=== PATIENT | female | born 1965 | race Caucasian/White ===

== ENCOUNTER → 2017-03-17 | Outpatient (CLI) | payer BC ==
--- NOTE | 2017-03-20 11:11 | MM ---
Reason for exam: screening (asymptomatic). Last mammogram was performed 1 year and 2 months ago. History: Family history of breast cancer in grandmother at age 70. Physical Findings: A clinical breast exam by your physician is recommended on an annual basis and results should be correlated with mammographic findings. MG Screening Mammo w CAD Bilateral CC and MLO view(s) were taken. Prior study comparison: January 20, 2016, bilateral MG screening mammo w CAD. October 06, 2012, bilateral digital screening mammo w/CAD. May 26, 2010, bilateral digital screening mammogram. There are scattered fibroglandular densities. Developing asymmetry in the left breast middle depth medial position. Focal asymmetry. Questionable obscured density in the right breast middle depth outer aspect. Asymmetric breast tissue. ASSESSMENT: Incomplete: need additional imaging evaluation, BI-RAD 0 RECOMMENDATION: Special view mammogram of both breasts. If lesion persists on supplemental views, image directed ultrasound is recommended. [facility] will attempt to contact patient to return for supplemental views and ultrasound if indicated.
== END ==
LOC: RADMAMWWP 12:25
PROVIDERS: ATTEND Family Medicine
DX: Z12.31 Encounter for screening mammogram for malignant neoplasm of breast (principal)

== ENCOUNTER → 2017-05-23 | Outpatient (CLI) | payer BC ==
[2017-05-23 15:49] LABS: Basophils # (A) 0.1 k/uL (0-0.2); Basophils % (A) 1 %; CH 33.3; Eosinophils % (A) 1 %; HCT 48.1 % (34.0-46.0); HGB 15.5 gm/dL (11.4-16.0); Luc # (Auto) 0.07; Luc % (Auto) 1; Lymphocytes # (A) 1.5 k/uL (1.0-4.8); Lymphocytes % (A) 22 %; MCH 31.6 pg (25.0-35.0); MCHC 32.2 g/dL (31.0-37.0); MCV 98.3 fL (80.0-100.0); Mean Platelet Volume 8.3; Monocytes # (A) 0.4 k/uL (0-1.0); Monocytes % (A) 5 %; Neutrophils % (A) 71 %; RDW 13.4 % (11.5-15.5); WBC (Perox) 6.68
== END | disposition home or self-care (01) ==
LOC: LABPAT 15:23
PROVIDERS: ATTEND Anesthesiology
DX: Z01.810 Encounter for preprocedural cardiovascular examination (principal); I10 Essential (primary) hypertension
CPT/HCPCS: 85025; 93005

== ENCOUNTER 2017-06-02 09:20 | Inpatient (IN) | payer BC ==
[2017-05-24 08:08] VITALS: BMI 26.6
[~2017-06-02 09:20] MED LIST: CLINDAMYCIN 900 MG in DEXTROSE 5% IN WATER 50 ML IVPB ONE; DEXAMETHASONE SOD PHOSPHATE 10 MG/ML 1 ML VIAL IV ONE; HEPARIN SODIUM,PORCINE 5,000 UNIT/ML 1 ML VIAL SQ ONE; HYDROmorphone 1 MG/ML 1 ML SYRINGE IVP PRN; MIDAZOLAM 2 MG/2 ML VIAL IV PRN; ONDANSETRON 4 MG/2 ML VIAL IVP ONE; SCOPOLAMINE 1.5MG/72HR PATCH TRANSDERM ONE
--- NOTE | 2017-06-02 09:47 | P.GSHP ---
History of Present Illness 51 yrs old female presents for follow up regarding Bauer's esophagitis and reflux. Unsuccessful attempt at 24 hr pH and manmetry study. Small hiatal hernia and distal esophagitis showing Bauer's changes in 2016. Patient continues to have reflux and takes daily PPI. She also has IBS and take Bentyl. No weight loss. No dysphagia. Last colonoscopy by Dr. Flako Vasquez on 04/16 ROS Additionally reports: Constitutional: No fever, chills or rigors. No weight loss or loss of appetite. HEENT: No difficulty with hearing, vision and swallowing. Lymphatic: No axillary, inguinal and cervical swellings. Endocrine: No thyroid disorders. Denies history of diabetes. Respiratory: No chest pain, shortness of breath, and cough. No hemoptysis. Cardiovascular: No palpitations, irregular HR Gastrointestinal: Has heartburn. Genitourinary: No increase in urinary frequency or urgency. No hematuria. Musculoskeletal: No back pain, joint stiffness or pain. Neurologic: No history of seizure disorder and headaches. Psychiatric: Denies depression or anxiety . No suicidal ideation. Hematologic: Denies any abnormal mucosal bleeding or easy bruising. Physical Exam Patient is a 51-year-old female. Constitutional: General Appearance: healthy-appearing, well-nourished, and well- developed. Level of Distress: NAD. Ambulation: ambulating normally. Psychiatric: Insight: good judgement. Orientation: to time, place, and person. Head: Head: normocephalic and atraumatic. Eyes: Lids and Conjunctivae: no discharge or pallor and non-injected. Sclerae: non-icteric. ENMT: Oropharynx: moist mucous membranes. Abdomen: Bowel Sounds: normal. Inspection and Palpation: no tenderness or guarding and soft and non-distended. Musculoskeletal:: Motor Strength and Tone: normal and normal tone. Joints, Bones , and Muscles: normal movement of all extremities. Extremities: no cyanosis or edema. Neurologic: Gait and Station: normal gait and station. Cranial Nerves: grossly intact. Assessment / Plan 1. Reji's esophagitis and refractory GERD 2. Chronic active smoker. Smoking cessation 3. Unable to tolerate pH and manometry test 4. Informed consent obtained from the patient after explaining the risks, benefits and potential complications including bleeding, infection, pneumothorax , dysphagia, vagus nerve injury and she elected to undergo robotic assist laparoscopic hiatal hernia repair with possible mesh and Willy fundoplication with intraoperative EGD. 5. Postoperative course explained including diet restriction and postop diet plan. No heavy lifting more than 10 pounds for 6 weeks post surgery 1. 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 Nicotine dependence F17.200: Nicotine dependence, unspecified, uncomplicated STOPPING SMOKING: CARE INSTRUCTIONS 3. Irritable bowel syndrome K58.9: Irritable bowel syndrome without diarrhea IRRITABLE BOWEL SYNDROME: CARE INSTRUCTIONS Past Medical History Past Medical History: Asthma, GERD/Reflux, Hypertension Additional Past Medical History / Comment(s): SEASONAL ALLERGIES, PAST HX OF ANEMIA, IBS. History of Any Multi-Drug Resistant Organisms: None Reported Past Surgical History: Tubal Ligation Additional Past Surgical History / Comment(s): BUNIONECTOMY, ECTOPIC Past Anesthesia/Blood Transfusion Reactions: No Reported Reaction Smoking Status: Current every day smoker - Past Family History Father Family Medical History: Cancer Additional Family Medical History / Comment(s): THROAT CANCER Medications and Allergies Home Medications Medication Instructions Recorded Confirmed Type ALPRAZolam [Xanax] 0.25 mg PO BID PRN 04/22/16 05/24/17 History Albuterol Inhaler [Ventolin Hfa 1 - 2 puff INHALATION Q6HR PRN 04/22/16 History Inhaler] Dicyclomine [Bentyl] 20 mg PO BID PRN 04/22/16 05/24/17 History Fluticasone Nasal [place] [Flonase 1 spray EA NOSTRIL BID PRN 04/22/16 05/24/17 History Nasal [place]] Omeprazole 40 mg PO DAILY 04/22/16 05/24/17 History Lisinopril-Hctz 20-25 mg 1 tab PO DAILY 05/24/17 05/24/17 History [Zestoretic 20-25] Montelukast [Singulair] 10 mg PO HS 05/24/17 05/24/17 History Sulfamethox-Tmp 800-160Mg [Bactrim 1 tab PO Q12HR 06/02/17 06/02/17 History DS 800-160 mg] Allergies Allergy/AdvReac Type Severity Reaction Status Date / Time Beef Containing Products Allergy Unknown IBS Verified 06/02/17 09:41 [Beef] SYMPTOMS corn Allergy Unknown IBS Verified 06/02/17 09:41 SYMPTOMS latex Allergy Unknown Rash/Hives Verified 06/02/17 09:41 wheat Allergy Unknown IBS Verified 06/02/17 09:41 SYMPTOMS cephalexin monohydrate Allergy Itching Verified 06/02/17 09:41 [From Keflex] tetracycline AdvReac Unknown Verified 06/02/17 09:41 Surgical - Exam Vital Signs Temp Pulse Resp BP Pulse Ox 98.1 F 74 16 108/85 96 06/02/17 09:40 06/02/17 09:40 06/02/17 09:40 06/02/17 09:40 06/02/17 09:40
[2017-06-02] MEDS: LACTATED RINGERS 1,000 ML IV SCH (09:55)
[2017-06-02] MEDS ORDERED: LIDOCAINE 1% 20 ML VIAL (10MG/ML) FOR IV START INTRADERMA ONE (09:56)
[2017-06-02] MEDS ORDERED: GLYCOPYRROLATE 0.2 MG/ML 2 ML VIAL ONE (10:15)
[2017-06-02] MEDS ORDERED: MIDAZOLAM 2 MG/2 ML VIAL ONE (10:15)
[2017-06-02] MEDS ORDERED: NEOSTIGMINE 1 MG/ML 10 ML VIAL ONE (10:15)
[2017-06-02] MEDS ORDERED: ePHEDrine SULFATE/0.9% NACL/PF 50 MG/5 ML SYRINGE IV ONE (10:15)
[2017-06-02] MEDS ORDERED: ROCURONIUM BROMIDE 10 MG/ML 10 ML VIAL IV ONE (10:15)
[2017-06-02] MEDS ORDERED: PROPOFOL 10 MG/ML 20 ML VIAL IV ONE (10:15)
[2017-06-02] MEDS ORDERED: LIDOCAINE 1% INJ 10MG/ML (20 ML MDV) ONE (10:15)
[2017-06-02] MEDS ORDERED: SUCCINYLCHOLINE CHLORIDE 100 MG/5 ML SYR IV ONE (10:15)
[2017-06-02] MEDS ORDERED: fentaNYL (PF) 50 MCG/ML 2 ML AMP ONE (10:15)
[2017-06-02] MEDS ORDERED: HYDROmorphone (PF) 1 MG/ML ONE (10:15)
[2017-06-02] MEDS ORDERED: LIDOCAINE 2%-EPI 1:100,000 20 ML VIAL SQ ONE (10:48)
[2017-06-02] MEDS ORDERED: LACTATED RINGERS 1,000 ML IV ONE (11:35)
[2017-06-02 11:44] LABS: Potassium 4.5 mmol/L (3.5-5.1)
[2017-06-02] MEDS ORDERED: HYDROcodone/APAP 15 ML SOLUTION PO PRN (12:31)
[2017-06-02] MEDS ORDERED: NALOXONE 0.4 MG/ML 1 ML VIAL IV PRN (12:31)
[2017-06-02] MEDS ORDERED: diphenhydrAMINE 50 MG/ML 1 ML VIAL IVP PRN (12:31)
--- NOTE | 2017-06-02 12:31 | P.OP ---
Date of Procedure: 06/02/17 Preoperative Diagnosis: GERD Bauer's esophagus Nicotine dependence Postoperative Diagnosis: Same Procedure(s) Performed: Robotic assist lap hiatal hernia repair and Willy fundoplication Intraop EGD Anesthesia: CECY local Surgeon: Ernestina Dickerson Pathology: none sent Condition: stable Disposition: PACU Indications for Procedure: 51 yr old female presents with refractory GERD and EGD showed Reji's esophagitis. Informed consent obtained. Description of Procedure: The patient was brought to the operating room and placed in supine position. General anesthesia with endotracheal intubation was performed as per anesthesia team. A Davsi catheter was inserted under sterile aseptic precautions. 2 secure straps were placed. The abdomen was prepped and draped using ChloraPrep and sterile dressings were applied followed by an Ioban dressing. A 5 mm skin incision was made in left anterior axillary line and a Veress needle was inserted. Proper position was confirmed by aspiration and saline meniscus test. Pneumoperitoneum was insufflated to a pressure of 15 mm of Hg. Using 5 mm 30 laparoscope, the peritoneal cavity was entered under direct vision using the Optiview technique. Two 8 mm robotic trocars were placed in the left upper quadrant, a 12 mm camera port above the umbilicus, another 12 mm port in the right upper quadrant and a 5 mm robotic trocar in the right upper quadrant. The da Pat robot was then brought in. The patient was placed in reverse Trendelenburg position. A nellie flex liver retractor was introduced in the right epigastric port to elevate the left lobe of the liver and expose the hiatus. Moderate size hernia was noted with 15% of the stomach in the thoracic cavity. The lesser omentum was opened with vessel sealer. The incision was extended over the hiatus to the left of the fer. The right fer was identified and cleared of its investing tissue, and the dissection was then carried over the arch of the crura. The left fer was similarly dissected and the phrenoesophageal ligament divided. The vagus nerves were identified and protected. The esophagus was gently elevated with a closed grasper and the dissection progressed underneath the esophagus until it was fully mobilized. The hernia sac extended up to the chest and was fully mobilized and resected. The gastroepiploic vessels were ligated along the greater curvature of stomach. Care was taken not to injure spleen while dividing the short gastric vessels with vessel sealer. The stomach was completely mobilized and adequate length was obtained in the esophagus allowing at least 3 cm of intra abdominal esophagus. The hernia defect measures 5 x 3 cm. 3 interrupted sutures of 2-0 Ethibond were placed to close the hiatal defect posteriorly and anteriorl without causing undue narrowing of the esophagus. An angled grasper was passed behind the esophagus and the fundus grasped and pulled behind the esophagus. It passed easily and was easily approximated without tension to the remaining fundus, creating a 360 floppy wrap around the distal esophagus. The wrap was sutured to itself with 3 interrupted sutures of 2-0 Ethibond. The top most suture included a partial thickness bite of the esophagus to anchor the wrap. Intraoperative EGD was then performed. The scope was easily passed beyond the wrap without any undue tension or narrowing. The scope was retroflexed and the Willy wrap visualized. There was no air leak upon insufflation of the stomach. Excess air was suctioned and scope was removed. The liver retractor was removed. The 12 mm trocar sites were closed with two transfascial sutures of 0 Vicryl. Pneumoperitoneum was evacuated and all trocar sites were examined. No evidence of bleeding. The skin incision were closed with 4-0 Monocryl followed by Dermabond skin glue. Sponge, instrument and needle count were correct x 2. Patient tolerated the procedure well and was taken to post anesthesia care unit in stable condition
--- NOTE | 2017-06-02 12:34 | P.DS ---
Providers Date of admission: 06/02/17 09:20 Expected date of discharge: 06/03/17 Attending physician: Ernestina Dickerson Primary care physician: [facility] Course: 51 yr old female S/P robotic hiatal hernia repair with Willy fundoplication. Patient did well post op . Tolerating liquids. Pain well controlled. Patient Condition at Discharge: Fair Plan - Discharge Summary New Discharge Prescriptions: New Hydrocodone/Acetaminophen [Hycet 7.5 mg-325 mg/15 ml Soln] 15 ml PO Q6HR PRN #300 ml PRN Reason: Pain No Action Fluticasone Nasal [place] [Flonase Nasal [place]] 1 spray EA NOSTRIL BID PRN PRN Reason: allergies Dicyclomine [Bentyl] 20 mg PO BID PRN PRN Reason: IBS Albuterol Inhaler [Ventolin Hfa Inhaler] 1 - 2 puff INHALATION RT-Q6H PRN PRN Reason: Shortness Of Breath ALPRAZolam [Xanax] 0.25 mg PO BID PRN PRN Reason: Anxiety Lisinopril-Hctz 20-25 mg [Zestoretic 20-25] 1 tab PO DAILY Montelukast [Singulair] 10 mg PO HS Sulfamethox-Tmp 800-160Mg [Bactrim DS 800-160 mg] 1 tab PO Q12HR Omeprazole 40 mg PO DAILY Discharge Medication List ALPRAZolam [Xanax] 0.25 mg PO BID PRN 04/22/16 [History] Albuterol Inhaler [Ventolin Hfa Inhaler] 1 - 2 puff INHALATION RT-Q6H PRN [History] Dicyclomine [Bentyl] 20 mg PO BID PRN 04/22/16 [History] Fluticasone Nasal [place] [Flonase Nasal [place]] 1 spray EA NOSTRIL BID PRN [History] Lisinopril-Hctz 20-25 mg [Zestoretic 20-25] 1 tab PO DAILY 05/24/17 [History] Montelukast [Singulair] 10 mg PO HS 05/24/17 [History] Hydrocodone/Acetaminophen [Hycet 7.5 mg-325 mg/15 ml Soln] 15 ml PO Q6HR PRN # 300 ml 06/02/17 [Rx] Omeprazole 40 mg PO DAILY 06/02/17 [History] Sulfamethox-Tmp 800-160Mg [Bactrim DS 800-160 mg] 1 tab PO Q12HR 06/02/17 [ History] Follow up Appointment(s)/Referral(s): Ernestina Dickerson MD [STAFF PHYSICIAN] - 06/13/17 (Please call office for time of appointment) Patient Instructions/Handouts: Adult Laparoscopic Willy Fundoplication (DC), Laparoscopic Hiatal Hernia Repair (DC) Activity/Diet/Wound Care/Special Instructions: OK to shower . No soaking bath. No heavy lifting more than 10 lbs for 6 weeks post surgery. No driving while taking narcotics for pain. May use ice packs for local pain relief Take Motrin 400 mg po TID after meals if pain is not controlled Use incentive spirometry 10 times an hour while awake Discharge Disposition: HOME SELF-CARE
[2017-06-02] MEDS ORDERED: ACETAMINOPHEN IV (For NPO) 1,000 MG in EMPTY BAG 1 BAG IVPB ONE (14:00)
[2017-06-02] MEDS: ALBUTEROL NEBULIZED 2.5 MG/3 ML INHALATION SCH ×2 (15:40→19:52)
[2017-06-02] MEDS: HEPARIN SODIUM,PORCINE 5,000 UNIT/ML 1 ML VIAL SQ SCH ×2 (16:35→23:35)
[2017-06-02] MEDS ORDERED: ALPRAZolam 0.25 MG TAB PO PRN (17:46)
[2017-06-02] MEDS: SIMETHICONE 40 MG/0.6 ML DROPS 2,000 MG/30 ML BOTTLE PO PRN (18:28)
[2017-06-02] MEDS: FLUTICASONE 50MCG/SPRAY NASAL 16GM EA NOSTRIL PRN (18:28)
[2017-06-02] MEDS: HYOSCYAMINE ORAL DROPS 1.875 MG/15 ML BOTTLE PO PRN (18:28)
[2017-06-02] MEDS ORDERED: MONTELUKAST 10 MG TAB PO SCH (21:00)
[2017-06-02] MEDS: HYDROmorphone 1 MG/ML 1 ML SYRINGE IVP PRN (22:15)
[2017-06-03] MEDS: HYDROmorphone 1 MG/ML 1 ML SYRINGE IVP PRN ×2 (03:10→07:12)
[2017-06-03] MEDS: LACTATED RINGERS 1,000 ML IV SCH (05:05)
[2017-06-03 05:58] VITALS: RESP 16
[2017-06-03 07:02] LABS: Basophils % (A) 0 %; CH 31.5; CHCM 32.8; Eosinophils % (A) 1 %; HCT 38.2 % (34.0-46.0); HDW 2.04; HGB 12.7 gm/dL (11.4-16.0); Luc # (Auto) 0.11; Luc % (Auto) 2; Lymphocytes # (A) 1.4 k/uL (1.0-4.8); Lymphocytes % (A) 23 %; MCHC 33.1 g/dL (31.0-37.0); MCV 96.5 fL (80.0-100.0); Mean Platelet Volume 7.7; Monocytes # (A) 0.4 k/uL (0-1.0); Monocytes % (A) 6 %; Neutrophils # (A) 4.1 k/uL (1.3-7.7); Neutrophils % (A) 68 %; RBC 3.96 m/uL (3.80-5.40); RDW 12.8 % (11.5-15.5); WBC 6.1 k/uL (3.8-10.6); WBC (Perox) 6.33
[2017-06-03 07:04] VITALS: BP 115/74; PULSE 59; TEMP 97.2
[2017-06-03] MEDS: ONDANSETRON 4 MG/2 ML VIAL IVP PRN ×2 (07:12→14:22)
[2017-06-03] MEDS: HYOSCYAMINE ORAL DROPS 1.875 MG/15 ML BOTTLE PO PRN (07:16)
[2017-06-03] MEDS: SIMETHICONE 40 MG/0.6 ML DROPS 2,000 MG/30 ML BOTTLE PO PRN (07:17)
[2017-06-03 07:19] LABS: Anion Gap 5 mmol/L; Blood Urea Nitrogen 7 mg/dL (7-17); Calcium 9.4 mg/dL (8.4-10.2); Carbon Dioxide 26 mmol/L (22-30); Chloride 109 mmol/L (98-107); Magnesium 1.8 mg/dL (1.6-2.3); Non-African American GFR(MDRD) >60 (>60 ml/min/1.73 sqM); Phosphorus 4.2 mg/dL (2.5-4.5); Potassium 4.7 mmol/L (3.5-5.1); Sodium 140 mmol/L (137-145)
[2017-06-03] MEDS ORDERED: 0.9% NACL WITH KCL 20 MEQ/L 1,000 ML IV SCH (08:00)
[2017-06-03] MEDS ORDERED: PANTOPRAZOLE 40 MG/10 ML VIAL IV SCH (09:00)
[2017-06-03] MEDS ORDERED: LISINOPRIL-HCTZ 20-25 MG 1 EACH TAB PO SCH (09:00)
[2017-06-03] MEDS: ALBUTEROL NEBULIZED 2.5 MG/3 ML INHALATION SCH ×2 (09:16→12:53)
--- NOTE | 2017-06-03 09:41 | FL ---
EXAMINATION TYPE: FL UGI DATE OF EXAM: 06/03/2017 LIMITED UGI-ESOPHAGRAM: CLINICAL HISTORY: Chronic reflux and pain with sliding hiatal hernia, Mario fundoplication surgery p erformed yesterday. TECHNIQUE: Limited UGI is performed utilizing 50 oz of Omnipaque 350. A total of 15 seconds of fluor oscopic time was utilized during procedure. 13 spot images were saved. FINDINGS: The patient swallowed contrast without difficulty or delay. Esophageal peristalsis and mo tility are within normal limits. There is good flow of contrast along the diaphragmatic hiatus into t he stomach, there is no evidence of contrast extravasation to suggest leak. No persistent hiatal tony ia is seen. Patient remains asymptomatic. IMPRESSION: No evidence of leak or significant obstruction status post Mario fundoplication surgery yesterday.
[2017-06-03] MEDS: FLUTICASONE 50MCG/SPRAY NASAL 16GM EA NOSTRIL PRN (11:07)
[2017-06-03] MEDS: HEPARIN SODIUM,PORCINE 5,000 UNIT/ML 1 ML VIAL SQ SCH (11:07)
--- NOTE | 2017-06-03 22:00 | P.PN ---
Subjective Principal diagnosis: Hiatal hernia Patient presented with history of hiatal hernia. She is status post hiatal hernia repair with Willy fundoplasty by Dr. Dickerson. No reports of moderate abdominal pain. Objective - Vital Signs Vital signs: Vital Signs Temp 97.2 F L 06/03/17 07:00 Pulse 59 L 06/03/17 07:00 Resp 16 06/03/17 07:00 BP 115/74 06/03/17 07:00 Pulse Ox 99 06/03/17 10:21 Intake & Output 06/02/17 06/03/17 06/03/17 18:59 06:59 18:59 Intake Total 2206 1900 Output Total 210 1100 Balance 1995 800 Weight 70.307 kg Intake: IV 2206 800 0.9% NaCl with KCl 20 Meq 800 /l 1,000 ml @ 100 mls/hr IV .Q10H SAILAJA Rx#: [id number] Oral 1100 Output: Urine 200 1100 Estimated Blood Loss 10 Other: Voiding Method Toilet # Voids 2 2 - Exam GENERAL: Well developed and in no acute distress. Pleasant. HEENT: No sclera icterus. Extraocular movements grossly intact. Moist buccal mucosa. Head is atraumatic, normocephalic. Hears conversational speech. No nasal drainage. CHEST: Non-labored respirations and equal bilateral excursions. CARDIOVASCULAR: Regular rate and rhythm. Palpable 2+ radial pulses. ABDOMEN: Soft. Nondistended. NEUROLOGIC: No focal or lateralizing signs. PSYCH: Appropriate affect. Alert and oriented to person, place and time. - Labs CBC & Chem 7: 06/03/17 06:40 06/03/17 06:40 Labs: Abnormal Lab Results - Last 24 Hours (Table) 06/03/17 Range/Units 06:40 Chloride 109 H (98-107) mmol/L - Imaging and Cardiology Esophagram reviewed. No obstruction. Assessment and Plan (1) Hiatal hernia Status: Acute (2) Gastroesophageal reflux Status: Acute Plan: 1. Recommend diet instructions per attenting. 2. Patient clinically cleared for discharge.
[2017-06-04] MEDS ORDERED: BISACODYL 5 MG TABLET.DR PO PRN (08:00)
== END 2017-06-03 15:11 | disposition home or self-care (01) | DRG 328 ==
LOC: 2ORWHC 09:20 → 3SUR 13:13
PROVIDERS: ADMIT Surgery; ATTEND Surgery
PROC: 0BQS4ZZ (ICD-10-PCS; principal; 2017-06-02 10:30)
PROC: 0BQR4ZZ (ICD-10-PCS; principal; 2017-06-02 10:30)
PROC: 0DJ08ZZ Inspection of Upper Intestinal Tract, Via Natural or Artificial Opening Endoscopic (ICD-10-PCS; principal; 2017-06-02 10:30)
PROC: 0DV44ZZ Restriction of Esophagogastric Junction, Percutaneous Endoscopic Approach (ICD-10-PCS; principal; 2017-06-02 10:30)
PROC: 8E0W4CZ Robotic Assisted Procedure of Trunk Region, Percutaneous Endoscopic Approach (ICD-10-PCS; principal; 2017-06-02 10:30)
DX: K44.9 Diaphragmatic hernia without obstruction or gangrene (principal); I10 Essential (primary) hypertension; F17.200 Nicotine dependence, unspecified, uncomplicated; J45.909 Unspecified asthma, uncomplicated; K21.0 Gastro-esophageal reflux disease with esophagitis; K22.70 Barrett's esophagus without dysplasia; K58.9 Irritable bowel syndrome, unspecified; Z79.899 Other long term (current) drug therapy; Z80.8 Family history of malignant neoplasm of other organs or systems; Z88.1 Allergy status to other antibiotic agents; Z91.040 Latex allergy status; Z91.018 Allergy to other foods; Z71.6 Tobacco abuse counseling; Z71.3 Dietary counseling and surveillance
CPT/HCPCS: 74240; 80051; 81025; 82310; 82565; 83735; 84100; 84520; 85025; 94760; 94762

== ENCOUNTER → 2018-12-13 | Outpatient (CLI) | payer BC ==
--- NOTE | 2018-12-13 14:50 | CT ---
EXAMINATION TYPE: CT chest wo con DATE OF EXAM: 12/13/2018 COMPARISON: HISTORY: Pleural scarring. Bronchitis x [address] DLP: 400.9 mGycm. Automated Exposure Control for Dose Reduction was Utilized. TECHNIQUE: CT scan of the thorax is performed without IV contrast. FINDINGS: LUNGS: There is no concerning parenchymal mass or nodule identified. Apical paraseptal emphysematous changes, centrilobular emphysema is present bilaterally. There is no pleural effusion or pneumothora x seen. The tracheobronchial tree is patent. Some bandlike areas of increased attenuation at the bertha g bases likely reflect atelectasis or scar. Lack of contrast could compromise sensitivity. MEDIASTINUM: Lack of IV contrast is noted to limit evaluation for mediastinal and especially hilar ad enopathy. There are no definitive greater than 1 cm hilar or mediastinal lymph nodes. There are muriel nary artery calcifications. No cardiomegaly or pericardial effusion is seen. OTHER: Diverticular changes noted in the colon. There are calcifications seen at the lower pole the l eft kidney. IMPRESSION: Emphysema and additional findings above.
== END | disposition home or self-care (01) ==
LOC: RADCTMAIN 11:33
PROVIDERS: ATTEND Family Medicine
DX: J43.2 Centrilobular emphysema (principal); I25.10 Atherosclerotic heart disease of native coronary artery without angina pectoris; R59.0 Localized enlarged lymph nodes; R91.8 Other nonspecific abnormal finding of lung field
CPT/HCPCS: 71250

== ENCOUNTER → 2021-10-08 | Outpatient (CLI) | payer BC ==
--- NOTE | 2021-10-10 10:33 | PE ---
EXAMINATION TYPE: PET CT fusion whole body DATE OF EXAM: 10/08/2021 COMPARISON: NONE HISTORY: Abdominal mass per order. Outside CT showed left upper retroperitoneal partially calcified mass. Mass on back per patient. TECHNIQUE: Following the intravenous administration of 9.51 mCi of F-18 FDG, whole body images are p erformed from the skull base to the bottom of feet. Images are reviewed on the computer in the coron al, axial, and sagittal planes. Reconstructed rotating images are created on independent workstation and reviewed on the computer. A localization and attenuation correction CT is performed in conjunc tion with the PET scan. Glucose level equals 98. SCAN: Chest CT December 13, 2018 FINDINGS: SKULL BASE AND NECK: No areas of abnormal hypermetabolic uptake CHEST, MEDIASTINUM, AND HILAR REGION: No areas of abnormal hypermetabolic uptake. ABDOMEN AND PELVIS: Corresponding to patient's history in the posterior left mid abdomen there is het erogeneous soft tissue and calcification in the retroperitoneum beginning at axial image 148 extendin g inferiorly through image 164 without abnormal hypermetabolic uptake. No abnormal hypermetabolic upt jenifer in the abdomen or pelvis. Normal excretion is seen. OSSEOUS STRUCTURES: No abnormal hypermetabolic uptake LOWER EXTREMITIES: No abnormal hypermetabolic uptake. OTHER CT: Mild calcified plaque bilateral carotid bulb level. Mild underlying emphysematous changes r edemonstrated. Coronary artery calcification proximal LAD noted. Irregular mass of calcified and soft tissue density in the posterior left retroperitoneum is partiall y imaged on 2019 CT without significant interval change and is mimicking hyperdense colonic diverticu la by interpreting radiologist. Few diverticula in the sigmoid colon. A few scattered pelvic phleboli ths. A 3 to 4 mm nonobstructing left renal calculus axial image 156 is noted. IMPRESSION: Left posterior retroperitoneal soft tissue mass with calcification shows no abnormal hype rmetabolic uptake. Lesion of uncertain etiology but favored benign in nature and in retrospect was pa rtially imaged on [address] No lesions of abnormal hypermetabolic uptake identified
== END | disposition home or self-care (01) ==
LOC: RADPETMAIN 07:34
PROVIDERS: ATTEND Internal Medicine Hematology & Oncology
DX: R19.09 Other intra-abdominal and pelvic swelling, mass and lump (principal)
CPT/HCPCS: 78816; A9552